=== PATIENT | male | born 1980 | race Caucasian/White ===

== ENCOUNTER 2020-06-13 09:57 | Emergency (ER) | payer OTHER ==
[~2020-06-13 09:57] MED LIST: BACTRIM DS TAB1 EACH PO; BACTROBAN OINT22 GM EXT; IBUPROFEN600 MG PO; LODINE CAP 300300 MG PO; ZOFRAN ODT 4 MG4 MG PO
[2020-06-13] MEDS ORDERED: VIBRAMYCIN 100100 MG PO (14:30)
== END 2020-06-13 14:48 | disposition home or self-care (01) ==
LOC: ER1 09:57
DX: S51.812A Laceration without foreign body of left forearm, initial encounter (principal); S70.361A Insect bite (nonvenomous), right thigh, initial encounter; F17.200 Nicotine dependence, unspecified, uncomplicated; W26.8XXA Contact with other sharp object(s), not elsewhere classified, initial encounter; Y92.009 Unspecified place in unspecified non-institutional (private) residence as the place of occurrence of the external cause
CPT/HCPCS: 11042; 73090; 99283